=== PATIENT | male | born 1935 | race Caucasian/White ===

== ENCOUNTER 2016-08-11 12:16 | Outpatient (RCR) | payer MEDICARE, BC | END 2016-09-09 | disposition home or self-care (01) | LOC: WCC 12:16 | DX: S91.302D Unspecified open wound, left foot, subsequent encounter (principal); X58.XXXD Exposure to other specified factors, subsequent encounter; Z90.5 Acquired absence of kidney; I10 Essential (primary) hypertension; I51.9 Heart disease, unspecified; M19.90 Unspecified osteoarthritis, unspecified site; E11.9 Type 2 diabetes mellitus without complications; N28.9 Disorder of kidney and ureter, unspecified; Z79.82 Long term (current) use of aspirin; Z88.6 Allergy status to analgesic agent; Z88.0 Allergy status to penicillin | CPT/HCPCS: G0463 ×2 ==

== ENCOUNTER 2016-09-15 11:55 | Outpatient (RCR) | payer MEDICARE, BC | END 2016-10-09 | disposition home or self-care (01) | LOC: WCC 11:55 | DX: L89.322 Pressure ulcer of left buttock, stage 2 (principal); Z90.5 Acquired absence of kidney; I51.9 Heart disease, unspecified; I10 Essential (primary) hypertension; N28.9 Disorder of kidney and ureter, unspecified; E11.9 Type 2 diabetes mellitus without complications; M19.90 Unspecified osteoarthritis, unspecified site; Z88.6 Allergy status to analgesic agent; Z88.0 Allergy status to penicillin | CPT/HCPCS: 11042; G0463 ==